=== PATIENT | male | born 1995 | race Caucasian/White ===

== ENCOUNTER 2018-02-13 11:01 | Emergency (ER) | payer OTHER, MEDICAID ==
[2018-02-13 11:15] VITALS: BP 97/68
--- NOTE | 2018-02-13 11:44 | ED Physician Documentation ---
PD HPI HEENT - Stated complaint Stated Complaint: EAR PX - Chief complaint Chief Complaint: Heent - History obtained from History obtained from: Patient, Caregiver - History of Present Illness Timing - onset: How many days ago (few) Timing - details: Still present Location: Right ear Associated symptoms: No: Fever Similar symptoms before: Diagnosis (History of ear infections.) Recently seen: Clinic (He was recently seen at [facility] where he underwent earwax removal after administration of Debrox.) - Additional information Additional information: The patient is a 22-year-old severely autistic male with history of ear infections, who presents with right earache, and fluid coming from his right ear canal. He has a history of ear infections, but his critical care clinical nurse specialist does not know the last time he was treated for an ear infection. He was recently seen at [facility] and underwent earwax removal with Debrox. He's had no recent fever, or vomiting. He has been administered ibuprofen for discomfort. Review of Systems Constitutional: denies: Fever Eyes: denies: Discharge Ears: reports: Ear pain (right), Drainage/discharge (right) Nose: denies: Congestion Respiratory: denies: Cough GI: denies: Vomiting Skin: denies: Rash PD PAST MEDICAL HISTORY - Past Medical History Past Medical History: Yes Neuro: Seizure disorder Other Past Medical History: dravetis syndrome epilepsy, autism, disruptive behavior disorder, cognitive issues due to seizure disorder, mitochondrial disorder, frequent sinus infections, ataxia - Past Surgical History Past Surgical History: Yes HEENT: Myringotomy (tubes) - Present Medications Home Medications: Ambulatory Orders Medication Instructions Recorded Confirmed Ascorbic Acid [Vitamin C] 1 tab PO DAILY 02/13/18 02/13/18 Clobazam [Onfi] 70 mg PO DAILY 02/13/18 02/13/18 Divalproex Sodium [Depakote] 2 tab PO DAILY 02/13/18 02/13/18 Ferrous Gluconate 1 tab PO DAILY 02/13/18 02/13/18 Folic Acid 1 tab PO DAILY 02/13/18 02/13/18 L.acidoph,Saliva/B.bif/S.therm 1 tab PO DAILY 02/13/18 02/13/18 [Acidophilus 175 mg Capsule] Lactulose 4.5 ml PO DAILY 02/13/18 02/13/18 Levocarnitine [Carnitor] 1 tab PO DAILY 02/13/18 02/13/18 Loratadine 1 tab PO DAILY 02/13/18 02/13/18 Neomycin/Polymyx/Hc Otic Drops 4 drops RIGHTEAR TID #1 bottle 02/13/18 [Cortisporin Ear Susp] [place]-3/Dha/Epa/Fish Oil [Fish Oil 1 tab PO DAILY 02/13/18 02/13/18 1,000 mg Softgel] Quetiapine Fumarate 2 tab PO DAILY 02/13/18 02/13/18 Ubidecarenone [Co Q-10] 1 tab PO DAILY 02/13/18 02/13/18 Vitamin B Complex [Balanced B-50] 1 tab PO DAILY 02/13/18 02/13/18 cephALEXin [Cephalexin] 500 mg PO TID #20 tablet 02/13/18 - Social History Does the pt smoke?: No Smoking Status: Smoker current status unk Does the pt drink ETOH?: No Does the pt have substance abuse?: No - Immunizations Immunizations are current?: Yes - POLST Patient has POLST: No PD ED PE NORMAL - Vitals Vital signs reviewed: Yes (normal) - General General: Other (Alert, nonverbal, mentally impaired male, who resists examination. His caregiver helps restrain him to facilitate examination.) - HEENT HEENT: Atraumatic, EOMI, Pharynx benign, Other (Right ear canal is narrow and mildly inflamed. The right tympanic membrane is partially visualized and is erythematous. Left tympanic membrane is clear.) - Neck Neck: Supple, no meningeal sign, No adenopathy - Cardiac Cardiac: RRR - Respiratory Respiratory: No respiratory distress, Clear bilaterally - Derm Derm: No rash - Neuro Neuro: Other (Nonverbal, moving all extremities well.) Results - Vitals Vitals: Oxygen O2 Source Room air PD MEDICAL DECISION MAKING - ED course Complexity details: considered differential, d/w patient, other (d/w caregiver) ED course: The patient's presentation is most consistent with acute right otitis media and right otitis externa. His presentation does not suggest meningitis or peritonsillar abscess. He is being discharged with prescriptions for cephalexin and for Cortisporin Otic suspension. I discussed with his caregiver the expected course of illness, antibiotic treatment and outpatient follow-up, as well as potentially worrisome signs or symptoms that should prompt reevaluation urgency department. - Sepsis Event Vital Signs: Oxygen O2 Source Room air Departure - Departure Disposition: 01 Home, Self Care Clinical Impression: Right otitis media Qualifiers: Otitis media type: suppurative Chronicity: acute Recurrence: not specified as recurrent Spontaneous tympanic membrane rupture: without spontaneous rupture Qualified Code(s): H66.001 - Acute suppurative otitis media without spontaneous rupture of ear drum, right ear Right otitis externa Qualifiers: Otitis externa type: diffuse Chronicity: acute Qualified Code(s): H60.311 - Diffuse otitis externa, right ear Condition: Stable Instructions: ED Otitis Media Acute Adult, ED Otitis Externa Follow-Up: Emmanuelle Zavaleta DO [Primary Care Provider] - Prescriptions: cephALEXin [Cephalexin] 500 mg PO TID #20 tablet Neomycin/Polymyx/Hc Otic Drops [Cortisporin Ear Susp] 4 drops RIGHTEAR TID #1 bottle Comments: Take cephalexin 3 times daily as prescribed. Instill Cortisporin Otic suspension in the right ear canal 3 times daily as prescribed. You can use Tylenol or ibuprofen as needed for discomfort or fever. Follow up with your primary physician within 2 weeks. Call to schedule an appointment. Return to the emergency department if increasing pain, or otherwise worsening symptoms. Discharge Date/Time: 02/13/18 11:50
== END 2018-02-13 11:50 | disposition home or self-care (01) ==
LOC: ED 11:01
DX: H66.001 Acute suppurative otitis media without spontaneous rupture of ear drum, right ear (principal); H60.311 Diffuse otitis externa, right ear; G40.409 Other generalized epilepsy and epileptic syndromes, not intractable, without status epilepticus; F84.0 Autistic disorder; F91.9 Conduct disorder, unspecified; E88.40 Mitochondrial metabolism disorder, unspecified
CPT/HCPCS: 99283

== ENCOUNTER 2018-02-24 17:47 | Outpatient (CLI) | payer OTHER, MEDICAID | END 2018-02-24 17:48 | disposition critical access hospital (66) | LOC: EMS 17:47 | PROVIDERS: ATTEND Surgery | DX: R56.9 Unspecified convulsions (principal) | CPT/HCPCS: A0425; A0429 ==

== ENCOUNTER 2018-02-24 18:03 | Emergency (ER) | payer OTHER, MEDICAID ==
[2018-02-24 18:09] VITALS: BP 128/85
[2018-02-24] MEDS: LORazepam 0.5 MG TABLET PO STA (18:31)
--- NOTE | 2018-02-24 18:56 | ED Physician Documentation ---
PD HPI SEIZURE - Stated complaint Stated Complaint: SZ - Chief complaint Chief Complaint: Neuro - History obtained from History obtained from: Patient, Caregiver - History of Present Illness Timing - onset: Today Witnessed: Witnessed Number of seizures: Multiple, Lasted - seconds Description of seizure activity: Focal (he has history of seizures often and usually brief for few seconds. Has caregivers and protocol to have eval if prolonged or often. Caregiver here says there was a new caregiver with the patient who was unfamiliar with the number of seizures patient has so here for eval but patient is not really having more than usual. He is limping on right foot the past 2 days, without apparent injury. No URI symptoms, no V/D.) Injury during seizure: None. No: Fell, Head injury Associated symptoms: No: Headache, Nausea / vomiting History of seizures: Known seizure disorder Contributing factors: Other (caregiver says the patient was busy today and seizures will be more often when he is tired and hungry.). No: Off meds, Out of meds Similar symptoms before: Diagnosis (seizure disorder, developmental delay, autism.) Review of Systems Unable to obtain: Other (developmental delay and minimally verbal. info from caregiver.) Constitutional: denies: Fever Nose: denies: Congestion Cardiac: denies: Chest pain / pressure Respiratory: denies: Dyspnea, Cough GI: denies: Vomiting, Diarrhea Skin: denies: Laceration (s) Musculoskeletal: reports: Extremity pain (limping right foot the past 2 days.) Neurologic: denies: Focal weakness, Numbness PD PAST MEDICAL HISTORY - Past Medical History Past Medical History: Yes Neuro: Seizure disorder, Other (cognitive delay and autism) Other Past Medical History: Severe autism that causes difficulty with even basic communication and a tendency for recurrent ear infections, sinus infections and can have self harming behaviours. aggresion, severe impulsivity and self-harming are triggered by illness or injury - Past Surgical History Past Surgical History: Yes HEENT: Myringotomy (tubes) - Present Medications Home Medications: Ambulatory Orders Medication Instructions Recorded Confirmed Ascorbic Acid [Vitamin C] 1 tab PO DAILY 02/13/18 02/13/18 Clobazam [Onfi] 70 mg PO DAILY 02/13/18 02/13/18 Divalproex Sodium [Depakote] 2 tab PO DAILY 02/13/18 02/13/18 Ferrous Gluconate 1 tab PO DAILY 02/13/18 02/13/18 Folic Acid 1 tab PO DAILY 02/13/18 02/13/18 L.acidoph,Saliva/B.bif/S.therm 1 tab PO DAILY 02/13/18 02/13/18 [Acidophilus 175 mg Capsule] Lactulose 4.5 ml PO DAILY 02/13/18 02/13/18 Levocarnitine [Carnitor] 1 tab PO DAILY 02/13/18 02/13/18 Loratadine 1 tab PO DAILY 02/13/18 02/13/18 Neomycin/Polymyx/Hc Otic Drops 4 drops RIGHTEAR TID #1 bottle 02/13/18 [Cortisporin Ear Susp] [place]-3/Dha/Epa/Fish Oil [Fish Oil 1 tab PO DAILY 02/13/18 02/13/18 1,000 mg Softgel] Quetiapine Fumarate 2 tab PO DAILY 02/13/18 02/13/18 Ubidecarenone [Co Q-10] 1 tab PO DAILY 02/13/18 02/13/18 Vitamin B Complex [Balanced B-50] 1 tab PO DAILY 02/13/18 02/13/18 Diacomit Stiripentol 1,000 mg ORAL DAILY 02/24/18 Montelukast [Singulair] 10 mg PO QPM 02/24/18 02/24/18 Naproxen 375 mg PO BID #20 tablet 02/24/18 Potassium [place] 300 mg ORAL DAILY 02/24/18 Ubidecarenone [Co Q-10] 100 mg PO 02/24/18 - Allergies Allergies/Adverse Reactions: Allergies Allergy/AdvReac Type Severity Reaction Status Date / Time acetaminophen Allergy Unknown Verified 02/24/18 18:12 prednisone Allergy Hives Verified 02/24/18 18:12 sulfamethoxazole Allergy Unknown Verified 02/24/18 18:12 [From ] trimethoprim [From ] Allergy Unknown Verified 02/24/18 18:12 - Living Situation Living Situation: reports: With caregiver(s) Living Arrangement: reports: [facility] - Social History Does the pt smoke?: No Smoking Status: Never smoker Does the pt drink ETOH?: No Does the pt have substance abuse?: No - Immunizations Immunizations are current?: Yes - POLST Patient has POLST: No PD ED PE NORMAL - Vitals Vital signs reviewed: Yes - General General: Well developed/nourished, Other (attentive and interacts with caregiver at low level of function, but interacts. ) - HEENT HEENT: Atraumatic, Pharynx benign - Cardiac Cardiac: RRR, No murmur - Respiratory Respiratory: Clear bilaterally - Abdomen Abdomen: Soft, Non tender - Derm Derm: Normal color, Warm and dry - Extremities Extremities: Other (limping right foot/ankle. Does not seem to have limited ROM of knee/hip, and kneels/scoots on floor okay without pain. ) Results - Vitals Vitals: Vital Signs - 24 hr 02/24/18 18:05 Temperature 36.2 C L Heart Rate 64 Respiratory 18 Rate Blood Pressure 128/85 H O2 Saturation 99 Oxygen O2 Source Room air - Rads (name of study) right foot and ankle Radiology: Prelim report reviewed, EMP read contemporaneously (no fractures) PD MEDICAL DECISION MAKING - Sepsis Event Vital Signs: Vital Signs - 24 hr 02/24/18 18:05 Temperature 36.2 C L Heart Rate 64 Respiratory 18 Rate Blood Pressure 128/85 H O2 Saturation 99 Oxygen O2 Source Room air Departure - Departure Disposition: 01 Home, Self Care Clinical Impression: Recurrent seizures Right foot sprain Qualifiers: Encounter type: initial encounter Qualified Code(s): S93.601A - Unspecified sprain of right foot, initial encounter Condition: Stable Record reviewed to determine appropriate education?: Yes Instructions: ED Sprain Foot Prescriptions: Naproxen 375 mg PO BID #20 tablet Comments: Continue his current medications. Encourage good hydration. Rest tonight. His foot x-ray does not show any obvious fractures. Presume it sprained. You could use some naproxen or ibuprofen twice daily for the next 7-10 days. It is okay for him to be on it and using it. Recheck is still limping after week or so. Discharge Date/Time: 02/24/18 19:00
--- NOTE | 2018-02-24 19:12 | XRAY Report ---
Procedure Date: 02/24/2018 Accession Number: [id number] / [id number] Procedure: XR - Ankle 3 View RT CPT Code: FULL RESULT: EXAM: RIGHT ANKLE RADIOGRAPHY EXAM DATE: 02/24/2018 06:51 PM. CLINICAL HISTORY: Limping right foot/leg. COMPARISON: None. TECHNIQUE: 3 views. FINDINGS: Bones: No fracture or focal bony lesion. Joints: No evidence of dislocation. Soft Tissues: No unexpected soft tissue findings. IMPRESSION: No evidence of fracture or dislocation. RADIA
--- NOTE | 2018-02-24 19:13 | XRAY Report ---
Procedure Date: 02/24/2018 Accession Number: [id number] / [id number] Procedure: XR - Foot 3 View RT CPT Code: FULL RESULT: EXAM: RIGHT FOOT RADIOGRAPHY EXAM DATE: 02/24/2018 06:51 PM. CLINICAL HISTORY: Limping on right foot/leg. COMPARISON: None. TECHNIQUE: 3 views. FINDINGS: Bones: No fracture or focal bony lesion. Joints: No evidence of dislocation. There is approximately 30 degrees valgus angulation through the first metatarsophalangeal joint. Soft Tissues: No unexpected soft tissue findings. IMPRESSION: No evidence of fracture or dislocation. RADIA
== END 2018-02-24 19:00 | disposition home or self-care (01) ==
LOC: EDUNIT# → ED 18:03
DX: G40.909 Epilepsy, unspecified, not intractable, without status epilepticus (principal); S93.601A Unspecified sprain of right foot, initial encounter; X58.XXXA Exposure to other specified factors, initial encounter; F84.0 Autistic disorder
CPT/HCPCS: 73610; 73630; 99283; 99284; A9270

== ENCOUNTER 2018-04-26 08:21 | Emergency (ER) | payer OTHER, MEDICAID ==
--- NOTE | 2018-04-26 08:34 | ED Physician Documentation ---
PD HPI UPPER EXT INJURY - Stated complaint Stated Complaint: L INDEX FINGER INJ - History of Present Illness Location: Left, Finger (index) Type of injury: Blunt / blow (caregiver believes he hit it against something.) Timing - onset: Yesterday Timing - duration: Days (1) Timing - details: Still present in ED (unknown mecahnism. Patient with autism and hits at objects sporadically. Went home from snf yesterday and returned with swelling of finger. Hurting and swelling still today. No other apparent injuries.) Improved by: Rest Worsened by: Moving, Palpating Associated symptoms: Swelling. No: Weakness, Numbness Similar symptoms before: Has not had sx before Recently seen: Not recently seen Review of Systems Skin: denies: Abrasion (s), Laceration (s) Neurologic: denies: Focal weakness, Numbness PD PAST MEDICAL HISTORY - Past Medical History Neuro: Seizure disorder, Other (cognitive delay and autism) - Past Surgical History Past Surgical History: Yes HEENT: Myringotomy (tubes) - Present Medications Home Medications: Ambulatory Orders Medication Instructions Recorded Confirmed Ascorbic Acid [Vitamin C] 1 tab PO DAILY 02/13/18 02/13/18 Clobazam [Onfi] 70 mg PO DAILY 02/13/18 02/13/18 Divalproex Sodium [Depakote] 2 tab PO DAILY 02/13/18 02/13/18 Ferrous Gluconate 1 tab PO DAILY 02/13/18 02/13/18 Folic Acid 1 tab PO DAILY 02/13/18 02/13/18 L.acidoph,Saliva/B.bif/S.therm 1 tab PO DAILY 02/13/18 02/13/18 [Acidophilus 175 mg Capsule] Lactulose 4.5 ml PO DAILY 02/13/18 02/13/18 Levocarnitine [Carnitor] 1 tab PO DAILY 02/13/18 02/13/18 Loratadine 1 tab PO DAILY 02/13/18 02/13/18 Neomycin/Polymyx/Hc Otic Drops 4 drops RIGHTEAR TID #1 bottle 02/13/18 [Cortisporin Ear Susp] [place]-3/Dha/Epa/Fish Oil [Fish Oil 1 tab PO DAILY 02/13/18 02/13/18 1,000 mg Softgel] Quetiapine Fumarate 2 tab PO DAILY 02/13/18 02/13/18 Ubidecarenone [Co Q-10] 1 tab PO DAILY 02/13/18 02/13/18 Vitamin B Complex [Balanced B-50] 1 tab PO DAILY 02/13/18 02/13/18 Diacomit Stiripentol 1,000 mg ORAL DAILY 02/24/18 Montelukast [Singulair] 10 mg PO QPM 02/24/18 02/24/18 Naproxen 375 mg PO BID #20 tablet 02/24/18 Potassium [place] 300 mg ORAL DAILY 02/24/18 Ubidecarenone [Co Q-10] 100 mg PO 02/24/18 - Allergies Allergies/Adverse Reactions: Allergies Allergy/AdvReac Type Severity Reaction Status Date / Time acetaminophen Allergy Unknown Verified 02/24/18 18:12 prednisone Allergy Hives Verified 02/24/18 18:12 sulfamethoxazole Allergy Unknown Verified 02/24/18 18:12 [From ] trimethoprim [From ] Allergy Unknown Verified 02/24/18 18:12 - Social History Does the pt smoke?: No Smoking Status: Never smoker Does the pt drink ETOH?: No Does the pt have substance abuse?: No - Immunizations Immunizations are current?: Yes - POLST Patient has POLST: No PD ED PE NORMAL - Vitals Vital signs reviewed: Yes - General General: No acute distress, Well developed/nourished, Other (nonverbal but does follow some sign language cues from provider. ) - HEENT HEENT: Atraumatic - Derm Derm: Normal color, Warm and dry - Extremities Extremities: Other (left index finger with swelling and bruising, tender at PIP. No gross deformity. Guarded ROM there but can extend and flex. Normal color and cap refill at tip. ) - Neuro Neuro: No motor deficit, No sensory deficit Results - Vitals Vitals: Vital Signs - 24 hr 04/26/18 08:37 Temperature 36.0 C L Heart Rate 91 Respiratory 18 Rate Blood Pressure 105/62 O2 Saturation 97 Oxygen O2 Source Room air - Rads (name of study) finger Radiology: Prelim report reviewed, EMP read contemporaneously (fracture distal end of proximal phalanx. ) PD MEDICAL DECISION MAKING - ED course Complexity details: reviewed results (phalanx fracture), considered differential , d/w patient, other (d/s caregiver accompanying him) - Sepsis Event Vital Signs: Vital Signs - 24 hr 04/26/18 08:37 Temperature 36.0 C L Heart Rate 91 Respiratory 18 Rate Blood Pressure 105/62 O2 Saturation 97 Oxygen O2 Source Room air Departure - Departure Disposition: 01 Home, Self Care Clinical Impression: Fracture of phalanx of left index finger Qualifiers: Encounter type: initial encounter Fracture type: closed Phalanx: proximal Fracture alignment: nondisplaced Qualified Code(s): S62.641A - Nondisplaced fracture of proximal phalanx of left index finger, initial encounter for closed fracture Condition: Stable Record reviewed to determine appropriate education?: Yes Instructions: ED Fx Finger Closed Follow-Up: Mathew Guillaume MD [Provider Admit Priv/Credential] - Comments: Olivia tape and splint or olivia tape as tolerated to protect the joint at the fracture. If it is too annoying for him and he is fussing at at a lot, then no splint would be better than him playing with it a lot. Follow-up with orthopedics in about a week, call tomorrow for an appointment. They will want to re-x-ray it to ensure its staying in position well enough to heal. Tylenol or ibuprofen if needed for pains. Discharge Date/Time: 04/26/18 09:34
[2018-04-26 08:40] VITALS: BP 105/62
--- NOTE | 2018-04-26 09:18 | XRAY Report ---
Reason: index finger injury Procedure Date: 04/26/2018 Accession Number: [id number] / [id number] Procedure: XR - Finger(s) LT CPT Code: FULL RESULT: EXAM: LEFT SECOND DIGIT RADIOGRAPHY EXAM DATE: 04/26/2018 08:53 AM. CLINICAL HISTORY: Patient is nonverbal. Caregiver reports the patient [place] the beach yesterday and there is now bruising and swelling left index finger. COMPARISON: None. TECHNIQUE: 3 views. FINDINGS: Bones: Oblique fracture through the distal medial aspect of the second proximal phalanx with 2 mm proximal and medial offset. The fracture line involves the articular surface of the PIP joint. Joints: No dislocation. Soft Tissues: Diffuse soft tissue swelling. IMPRESSION: Acute, mildly displaced, intra-articular fracture of the second proximal phalanx. RADIA
== END 2018-04-26 09:34 | disposition home or self-care (01) ==
LOC: ED 08:21
DX: S62.641A Nondisplaced fracture of proximal phalanx of left index finger, initial encounter for closed fracture (principal); X58.XXXA Exposure to other specified factors, initial encounter; Y92.832 Beach as the place of occurrence of the external cause; F84.0 Autistic disorder
CPT/HCPCS: 73140; 99283

== ENCOUNTER 2018-07-29 14:03 | Outpatient (CLI) | payer OTHER, MEDICAID | END 2018-07-29 14:04 | disposition critical access hospital (66) | LOC: EMS 14:03 | PROVIDERS: ATTEND Surgery | DX: R45.6 Violent behavior (principal) | CPT/HCPCS: A0425; A0429 ==

== ENCOUNTER 2018-07-29 14:19 | Emergency (ER) | payer OTHER, MEDICAID ==
[2018-07-29] MEDS ORDERED: OLANZapine 10 MG VIAL IM STA ×2 (14:28→18:38)
--- NOTE | 2018-07-29 14:40 | ED Physician Documentation ---
History of Present Illness - Stated complaint Stated Complaint: MHE - Chief complaint Chief Complaint: MHE - History obtained from History obtained from: EMS - History of Present Illness Timing: Today Pain level max: 0 Pain level now: 0 Improved by: nothing Worsened by: nothing - Additonal information Additional information: Patient is a 23-year-old autistic male who is brought in by EMS today for being violent at school. This is been an ongoing issue for the patient. Last saw his behavioral psychiatrist approximately 2-1/2 weeks ago and was started on a new medication, Fanapt. Is currently on 1mg PO BID. The care facility has not recontacted his doctor or his psychiatrist or anyone on his care team since he was seen 2-1/2 weeks ago. They do state that the behavior has been the same and has been unchanged. They state that his mother states he has been violent for a long time. Review of Systems Unable to obtain: Uncooperative PD PAST MEDICAL HISTORY - Past Medical History Past Medical History: Yes Neuro: Seizure disorder, Other Psych: ADD/ADHD - Past Surgical History Past Surgical History: Yes HEENT: Myringotomy (tubes) - Present Medications Home Medications: Ambulatory Orders Medication Instructions Recorded Confirmed Ascorbic Acid [Vitamin C] 1 tab PO DAILY 02/13/18 02/13/18 Clobazam [Onfi] 70 mg PO DAILY 02/13/18 02/13/18 Divalproex Sodium [Depakote] 2 tab PO DAILY 02/13/18 02/13/18 Ferrous Gluconate 1 tab PO DAILY 02/13/18 02/13/18 Folic Acid 1 tab PO DAILY 02/13/18 02/13/18 L.acidoph,Saliva/B.bif/S.therm 1 tab PO DAILY 02/13/18 02/13/18 [Acidophilus 175 mg Capsule] Lactulose 4.5 ml PO DAILY 02/13/18 02/13/18 Levocarnitine [Carnitor] 1 tab PO DAILY 02/13/18 02/13/18 Loratadine 1 tab PO DAILY 02/13/18 02/13/18 Neomycin/Polymyx/Hc Otic Drops 4 drops RIGHTEAR TID #1 bottle 02/13/18 [Cortisporin Ear Susp] [place]-3/Dha/Epa/Fish Oil [Fish Oil 1 tab PO DAILY 02/13/18 02/13/18 1,000 mg Softgel] Quetiapine Fumarate 2 tab PO DAILY 02/13/18 02/13/18 Ubidecarenone [Co Q-10] 1 tab PO DAILY 02/13/18 02/13/18 Vitamin B Complex [Balanced B-50] 1 tab PO DAILY 02/13/18 02/13/18 Diacomit Stiripentol 1,000 mg ORAL DAILY 02/24/18 Montelukast [Singulair] 10 mg PO QPM 02/24/18 02/24/18 Naproxen 375 mg PO BID #20 tablet 02/24/18 Potassium [place] 300 mg ORAL DAILY 02/24/18 Ubidecarenone [Co Q-10] 100 mg PO 02/24/18 Iloperidone [Fanapt] 2 mg PO BID #60 tablet 07/29/18 OLANZapine [Zyprexa Zydis] 5 mg PO BID PRN #20 tab.rapdis 07/29/18 - Allergies Allergies/Adverse Reactions: Allergies Allergy/AdvReac Type Severity Reaction Status Date / Time acetaminophen Allergy Unknown Verified 02/24/18 18:12 prednisone Allergy Hives Verified 02/24/18 18:12 sulfamethoxazole Allergy Unknown Verified 02/24/18 18:12 [From ] trimethoprim [From ] Allergy Unknown Verified 02/24/18 18:12 - Social History Does the pt smoke?: No Smoking Status: Never smoker Does the pt drink ETOH?: No Does the pt have substance abuse?: No - Immunizations Immunizations are current?: Yes - POLST Patient has POLST: No PD ED PE NORMAL - Vitals Vital signs reviewed: Yes - General General: Other (alert) - HEENT HEENT: Moist mucous membranes - Neck Neck: Supple, no meningeal sign - Cardiac Cardiac: RRR - Respiratory Respiratory: No respiratory distress, Clear bilaterally - Abdomen Abdomen: Soft, Non tender, Non distended - Derm Derm: Warm and dry, No rash - Extremities Extremities: No deformity, No edema - Neuro Neuro: Other (alert) Results - Vitals Vitals: Vital Signs - 24 hr 07/29/18 07/29/18 14:23 22:04 Temperature 36.8 C Heart Rate 116 H 86 Respiratory 18 18 Rate Blood Pressure 145/130 H 126/84 H O2 Saturation 97 97 Oxygen O2 Source Room air PD MEDICAL DECISION MAKING - ED course Complexity details: considered differential, d/w literacy consultant (Dr. Cavanaugh (behavioral psychiatrist in [place])), other (d/w caregiver) ED course: Patient is a 23-year-old autistic male with a long history of behavioral disturbances. Long history of aggressive behavior. Caregiver state worse over the past several weeks. Has seen his psychiatrist a few weeks ago, but has not been recontacted since that time. I contacted his behavioral psychiatrist who recommends increasing his Fanapt to 2 mg by mouth twice daily and adding Zyprexa Zydis 5 mg by mouth as needed for breakthrough aggression. Patient initially was restrained in the emergency department and was given Zyprexa as well as Ativan. He did calm down in the emergency department, but the caregivers state they are instructed by their boss that he is not to come home. Discussed the case with the caregivers boss, Catie Hale at 2200, who states that she was informed by the state social work faculty member not to take him home and that she needs the patient's mother to come in tomorrow morning at 10 AM to have permission to take him back to his home. I informed her that there is no acute emergency medical condition at this time and that we have adjusted his medications as requested and have written new prescriptions for her for breakthrough medications. He is out of restraints and sleeping for the past few hours. Was watching Peppa Pig on youtube calmly earlier in the ED visit as well. She states that it is not her choice to take him home or not and that she will be leaving him in the emergency department until tomorrow. She states she will come to the emergency department in the morning to discuss with staff and meet with patients mother. Patient signed out to oncoming ED physician. Departure - Departure Clinical Impression: Autism, Aggressive behavior Condition: Stable Instructions: Autism Manage Follow-Up: Anthony Ugalde MD [Primary Care Provider] - Within 1 week Prescriptions: Iloperidone [Fanapt] 2 mg PO BID #60 tablet OLANZapine [Zyprexa Zydis] 5 mg PO BID PRN #20 tab.rapdis PRN Reason: Agitation Comments: We will increase the Fanapt to 2mg by mouth twice a daily. Add zyprexa for breakthrough. Leave the seroquel alone for now. I spoke with Dr. Cavanaugh today.
[2018-07-29] MEDS ORDERED: LORazepam 0.5 MG TABLET PO STA (15:48)
[2018-07-29] MEDS ORDERED: OLANZapine ODT 5 MG TABLET TL STA (16:38)
[2018-07-29] MEDS ORDERED: LORazepam 2 MG/ML VIAL IM STA (19:29)
[2018-07-30] MEDS ORDERED: OLANZapine ODT 5 MG TABLET TL ONE (03:42)
--- NOTE | 2018-07-30 06:32 | ED Physician Documentation ---
ED Addendum - Addendum Addendum: 07/30/18 06:26 23 y/o autistic male with increased aggressive behavior slept until about 3am when he became agitated and became more aggressive. He began to swing at the RN and tried to lay on the floor. He needed to go to the bathroom and was assisted the bathroom and again attempted to swing at the RN. He tried to tear things off of the wall in the bathroom and he grabbed trying to dig his sharp nails into tissue. He was administered zyprexa 5mg TL and he required restraint. The tele- psych has been set up in anticipation of a consultation for potential medication changes.
[2018-07-30 08:51] LABS: BASOPHILS % (AUTO) 0.2 %; EOSINOPHILS % (AUTO) 0.2 %; LYMPHOCYTES # (AUTO) 0.7 10^3/uL (1.5-3.5); LYMPHOCYTES % (AUTO) 11.6 %; MEAN CORPUSCULAR HEMOGLOBIN 33.3 pg (27.0-31.0); MEAN CORPUSCULAR HGB CONC 33.2 g/dL (32.0-36.0); MEAN CORPUSCULAR VOLUME 100.3 fL (80.0-94.0); MEAN PLATELET VOLUME 9.1 fL (7.4-11.4); MONOCYTES # (AUTO) 0.7 10^3/uL (0.0-1.0); MONOCYTES % (AUTO) 12.5 %; NEUTROPHILS # (AUTO) 4.4 10^3/uL (1.5-6.6); NEUTROPHILS % (AUTO) 75.5 %; PLT - PLATELET COUNT 207 10^3/uL (130-450); RED BLOOD COUNT 3.59 10^6/uL (4.70-6.10); RED CELL DISTRIBUTION WIDTH 13.4 % (12.0-15.0); WHITE BLOOD COUNT 5.8 x10^3/uL (4.8-10.8)
[2018-07-30 09:01] LABS: ALBUMIN 4.3 g/dL (3.2-5.5); ALBUMIN/GLOBULIN RATIO 1.2 (1.0-2.2); BILIRUBIN,TOTAL 0.5 mg/dL (0.2-1.0); CALCIUM 9.4 mg/dL (8.5-10.3); CREATININE 0.7 mg/dL (0.6-1.2); TOTAL PROTEIN 7.9 g/dL (6.7-8.2)
--- NOTE | 2018-07-30 12:13 | TELEPSYCH PHYS NOTE ---
Telepsych Note - CHIEF COMPLAINT/HX OF PRESENT ILLNESS Cheif Complaint and History of Present Illness: Patient name & : Michael Hill 89 Date & time of consultation: 07/30/18, 130pm Location of patient: [facility] Location of doctor: [place], [place] Chief Complaint: Telepsychiatry consultation This evaluation was conducted via Telepsychiatry with the assistance of onsite staff. History of Present Illness: This pt is a 23 yr old male with hx of autism and seizure disorder . Chart reviewed and case discussed with treatment team. He presented to the hospital on 07/29 due to aggresive behavior at school. Per chart he has a long hx of aggressive behavior but this behavior has been worsening recently. He had a recent medication change - he was started on Fanapt. Pt's home psych meds were reviewed by the ED staff and are as follows (some are likely prescribed for seizures as well): Depakote 125mg TID, Seroquel 100mg TID, Ativan 0.5mg qpm prn, Clobazam 30mg daily with breakfast and 35mg qpm, Fanapt 1mg BID (started 1.5 weeks ago). The ED physician yesterday spoke to the pt's private psychiatrist who recommended the following : increasing his Fanapt to 2 mg by mouth twice daily and adding Zyprexa prns for breakthrough aggression. Per ED treatment team, here in the ED pt was continued on his home meds, and is receiving prns of zyprexa and ativan for aggression. Here in the ED he has received multiple prns of ativan and zyprexa both today and yesterday. He also had to be restrained at some point. Apparently overnight he became agitated and attempted to swing at a nurse and tried to tear things off the wall. Per the ED staff, the pt resides at a senior living and they will not accept him back. So he is here pending disposition in the ED. Telepsychiatry was consulted for assessment and recommendations for management. Pt is unable to participate with interview; fortunately his mother and caregiver were present and assisted with interview. Mother says that the pt has a psych history of autism, disruptive behavior disorder, anxiety and ADHD. He also has hx of seizures. He currently does have an outpt psychiatrist. He has hx of aggressive behavior in the past but there has been worsening in the past 3 weeks specifically after he broke his finger and needed surgery. Since then he has been more aggressive and has not been sleeping well. He has also had some other medical issues ie his clobazam levels being decreased; ammonia levels have recently been abnormal possibly per mother. In addition his internet programmer says that in June he was having seizures every week and continues to have seizures. In April they started tapering his clobazam dose very slowly bc the level was too high, as per the mother. Apparently the pt lives at home (not a senior living as previously reported) with mother but multiple caregivers come to the home to assist. The current caregiver confirms that prior to the recent surgery he had hx of aggressive behaviors ie headbunting people but that these behaviors worsened recently. She thinks that herself and one of the other caregivers may be able to manage the pt but there are other caregivers who cannot. In regards to his meds, they were reviewed with pt's mother: -She says that the pt takes seroquel 100mg BID and 300mg qhs - per chart it says 100mg TID. She says that he has been on this medication since 2008 with no recent dose changes. -Depakote for seizures; he has been on this since the age of 5 years. -Fanapt was started 1.5 weeks ago; mother has not noticed much improvement since then. -Pt takes ativan prn at bedtime; she does not think it helps and thinks that it may be causing a paradoxical reaction. -Per mother he is also on guanfacine at bedtime , though this is not listed in the chart; she think this helps calm the pt down at nighttime Collateral: see HPI. With the permission of the pt's mother I attempted to contact pt's psychiatrist Dr. Gabriela Cavanaugh at [phone]. I left a message with office staff but never received a call back. Psychiatric History/Treatment History: -Inpatient:in 2008 after he had an allergic reaction to a steroid (mother says that this reaction included sx of batsheva) -Outpatient:yes -History of suicide attempts:unknown Drug/Alcohol History:No UDS on file Medical History: -Medical problems:per chart and mother-seizure disorder -Current medications:see chart - ED treatment team confirmed that his home psych meds include: Depakote 125mg TID, Seroquel 100mg BID and 300mg qhs (per mother, chart says 100mg TID), Ativan 0.5mg qpm prn, Clobazam 30mg daily with breakfast and 35mg qpm, Fanapt 1mg BID (started 1.5 weeks ago). -Medication Allergies:acetaminophen, trimethoprim, prednisone, sulfa Family Psychiatric History: unknown Social History: -Education: pt in school per chart -Housing: pt lives at home and has caregivers that come to the home, as per mother -Strength/supports: medical Mental Status Exam: Appearance and attire: hospital attire, lying in bed in restraints Attitude and behavior:labile, restless Speech: unable to participate with interview Affect and mood: unable to assess Association and thought processes: unable to assess Thought content: unable to assess Perception: unable to assess Sensorium, memory, and orientation: alert Intellectual functioning: unable to assess Insight and judgment:impaired Diagnosis: Autism spectrum disorder by hx Seizure disorder Impression/Risk Assessment/Treatment Recommendations: -Recommended level of care: The patient is a 23 yr old male who presented to the ED yesterday, 07/29, due to worsening aggressive behaviors. Here in the ED pt continues to be agitated and aggressive, requiring many prns and restraints as well. Given the recent behaviors I would recommend an acute psychiatric hospitalization to help stabilize his behaviors and figure out a good medication regimen. However this is a difficult situation. His mother is somewhat hesitant about a hospital stay bc she says that often times his behaviors worsen in the hospital setting. Also of concern is that it is unknown if there is a psychiatric hosptial in the area that will accept him. It would be problematic to have him wait here for days just pending placement bc per ED staff, they are not equipped to manage his behaviors. Thus I recommend that if an acute psychiatric hospital setting can be found and the pt can promptly be admitted there and pt's mother agrees to that, then that should be pursued. However if that would not be possible and if mother does not agree to that , then as long as the pt's mother and caregivers feel comfortable with him being discharged home from a safety perspective, then he can be discharged with close follow up with his psychiatrist. -Recommended pharmacology/therapy/other treatments: If he is not going to be admitted to inpt psych and will be discharged, then medication recommendations are not indicated; in that case, his medications should be managed by his outpt provider in the outpt setting. If , and only if, he is going to be admitted to inpt psych, then recommend the following. -Discontinue ativan prns and unless prescribed for seizures, avoid benzos- sometimes benzos can cause behavioral disinhibition in this patient population. Also, ativan should not be given with zyprexa due to the risk of respiratory depression. -Increase seroquel to 125mg BID and 325mg qhs to help better target aggressive behaviors. -Continue his other psych meds ie the fanapt and zyprexa prns - max dose of zyprexa per day should not exceed 30mg total daily. -Monitor for EPS. If there are sx of EPS may start Benadryl 50mg PO or IM q6hrs prn EPS. Further recommendations regarding his psych meds will be made by the inpt psych treatment team upon admission there. These recommendations were discussed with the pt's mother and she expressed full agreement and understanding of this plan. Recommendations were also discussed with the ED physician as well. Thank you for this consult, please re-consult for follow up if indicated. Erum Cardenas MD Telepsychiatry - SI/HI/SELF HARM SI/HI/SELF HARM (CURRENT OR HISTORY OF):: Other - PSYCHIATRIC HX/TREATMENT HX Psychiatric: Other - DRUG/ALCOHOL HX Substance Use and Type: Other - MEDICAL HX Neurological History: Seizure disorder, Other - HOME MEDICATIONS Home Meds (as last confirmed): Patient History Medication Instructions Recorded Confirmed Ferrous Gluconate 1 tab PO DAILY 02/13/18 07/30/18 Folic Acid 1 tab PO DAILY 02/13/18 07/30/18 Lactulose 6 ml PO TID 02/13/18 07/30/18 Levocarnitine [Carnitor] 1 tab PO QPM 02/13/18 07/30/18 [place]-3/Dha/Epa/Fish Oil [Fish Oil 1 tab PO QPM 02/13/18 07/30/18 1,000 mg Softgel] Vitamin B Complex [Balanced B-50] 1 tab PO DAILY 02/13/18 07/30/18 Diacomit Stiripentol 1,000 mg ORAL DAILY 02/24/18 07/30/18 Montelukast [Singulair] 10 mg PO DAILY 02/24/18 07/30/18 Potassium [place] 300 mg ORAL TID 02/24/18 07/30/18 Ubidecarenone [Co Q-10] 100 mg PO BID 02/24/18 07/30/18 Ascorbic Acid [Vitamin C] 500 mg PO BID 07/30/18 07/30/18 Cholecalciferol (Vitamin D3) 1,000 unit PO QPM 07/30/18 07/30/18 [Vitamin D3] Clobazam [Onfi] 30 mg PO [id number] 07/30/18 07/30/18 Clobazam [Onfi] 35 mg PO QPM 07/30/18 07/30/[address] [Depakote Dr] 125 mg PO TID 07/30/18 07/30/18 Fexofenadine HCl 180 mg PO DAILY 07/30/18 07/30/18 Guanfacine HCl 1 mg PO QPM 07/30/18 07/30/18 Ibuprofen 400 mg PO Q6HR PRN 07/30/18 07/30/18 L.acidoph,Saliva/B.bif/S.therm 178 mg PO DAILY 07/30/18 07/30/18 [Acidophilus 175 mg Capsule] LORazepam [Lorazepam] 0.5 mg PO QPM PRN 07/30/18 07/30/18 [id number]/Ferrous Fumarate/FA [Kro 1 each PO DAILY 07/30/18 07/30/18 Vitamins Tablet] Polyethylene Glycol 3350 [Miralax] 17 gm PO BID PRN 07/30/18 07/30/18 Quetiapine Fumarate 100 mg PO BID 07/30/18 07/30/18 Quetiapine Fumarate [Seroquel] 300 mg PO DAILY PM 07/30/18 07/30/18 Quetiapine Fumarate [Seroquel] 500 mg PO ONCE PRN 07/30/18 07/30/18 Vitamin E Acetate [Vitamin E] 400 unit PO QPM 07/30/18 07/30/18 diazePAM [Diazepam] 0 mg IN ONCE PRN 07/30/18 07/30/18 - ALLERGIES Allergies (as last confirmed): Allergies Allergy/AdvReac Type Severity Reaction Status Date / Time acetaminophen Allergy Unknown Verified 02/24/18 18:12 prednisone Allergy Hives Verified 02/24/18 18:12 sulfamethoxazole Allergy Unknown Verified 02/24/18 18:12 [From ] trimethoprim [From ] Allergy Unknown Verified 02/24/18 18:12 - TIME SPENT & PROVIDER LOCATION Telepsych consultation conducted via videoconferencing: Yes List names and roles of persons who participated in consult: Oh Telepsych Provider Location: [facility] Time Telepsych consult began: 14:00 Time Telepsych consult completed: 14:30
[2018-07-30 16:25] LABS: MUDS CUTOFF CONCENTRATIONS CUTOFF CONC BELOW:
[2018-07-30 16:27] LABS: BILIRUBIN,URINE NEGATIVE (NEGATIVE); GLUCOSE, URINE (UA) NEGATIVE (NEGATIVE); KETONES,URINE (UA) NEGATIVE (NEGATIVE); LEUKOCYTE ESTERASE, URINE NEGATIVE (NEGATIVE); NITRITE,URINE NEGATIVE (NEGATIVE); OCCULT BLOOD,URINE NEGATIVE (NEGATIVE); PH,URINE 7.5 PH (5.0-7.5); PROTEIN,URINE NEGATIVE (NEGATIVE); UROBILINOGEN,URINE 0.2 (NORMAL) E.U./dL (NORMAL)
[2018-07-30 16:38] LABS: CLARITY,URINE CLEAR (CLEAR)
[2018-07-30 16:39] LABS: AMPHETAMINE SCREEN,URINE NEGATIVE (NEGATIVE); BENZODIAZEPINES SCREEN, URINE POSITIVE (NEGATIVE); COCAINE SCREEN URINE NEGATIVE (NEGATIVE); METHADONE SCREEN, URINE NEGATIVE (NEGATIVE); METHAMPHETAMINES SCREEN, URINE NEGATIVE (NEGATIVE); OPIATE SCREEN, URINE NEGATIVE (NEGATIVE); OXYCODONE SCREEN, URINE NEGATIVE (NEGATIVE); PROPOXYPHENE SCREEN, URINE NEGATIVE (NEGATIVE); TRICYCLIC ANTIDEPRESSANT,URINE POSITIVE (NEGATIVE)
--- NOTE | 2018-07-30 18:11 | ED Physician Documentation ---
ED Addendum - Addendum Addendum: 07/30/18 18:07 The patient has been calm and cooperative through the day. He has been released from his restraints earlier and has been doing well interacting with staff. He had had some aggressive behavior this morning but has been doing okay through the afternoon. He had doses of Zyprexa. He was evaluated by social work as well as DCR. He had a tele-psych consult this morning which recommended some medication changes and these would be best done a few days in the hospital if possible though the tele-psych psychiatrist did recommend him going home with medication changes if possible rather than prolonged stay in the ER which would really be disruptive and likely trigger more behavioral problems. The health care social worker and the nurse in the ER kept the patient's mother and caregivers up-to-date. I talked with the tele-psych psychiatrist as well as Dr. vega his behavioral p sychologist at [facility]. Concurrence was to change his medications from Seroquel dosing currently 100 in the morning 100 and afternoon and 300 at night to a new regimen of 300 mg twice a day. We would increase his other recent medication from 1-2 mg as discussed in the note from yesterday and still keep Zyprexa as a as needed medication. The patient's mother and the care providers at his home are agreeable to this. He has been without need for extra medication and been cooperative for the last few hours. Concurrence is if he remains good behavior for another 4 hours that they are willing to take him back home with the modified medication regimen.
[2018-07-30 19:52] VITALS: BP 128/88
== END 2018-07-30 20:00 | disposition home or self-care (01) ==
LOC: EDUNIT# → ED 14:19
DX: F84.0 Autistic disorder (principal); F91.8 Other conduct disorders; F90.9 Attention-deficit hyperactivity disorder, unspecified type; G40.909 Epilepsy, unspecified, not intractable, without status epilepticus
CPT/HCPCS: 36415; 80053; 80306; 81003; 83690; 85025; 96374; 99284; 99285; A9270; G0425; J2060; Q3014; 81001; 87086

== ENCOUNTER 2018-10-23 17:12 | Emergency (ER) | payer OTHER, MEDICAID ==
--- NOTE | 2018-10-23 17:40 | ED Physician Documentation ---
History of Present Illness - Stated complaint Stated Complaint: POSS CHOKE ON FOOD - Chief complaint Chief Complaint: General - History obtained from History obtained from: Patient, Caregiver - History of Present Illness Timing: Today Pain level max: 0 Pain level now: 0 Improved by: Nothing Worsened by: Nothing - Additonal information Additional information: 23-year-old autistic male choked on his food at school today. Has been asymptomatic since that time. Caregivers were told to bring him here for evaluation. No coughing. No fevers. No difficulty breathing. Acting normal for the patient Review of Systems Constitutional: denies: Fever, Chills Cardiac: denies: Chest pain / pressure Respiratory: denies: Cough GI: denies: Vomiting PD PAST MEDICAL HISTORY - Past Medical History Neuro: Seizure disorder, Other Psych: Other - Past Surgical History Past Surgical History: Yes HEENT: Myringotomy (tubes) - Present Medications Home Medications: Ambulatory Orders Medication Instructions Recorded Confirmed Ferrous Gluconate 1 tab PO DAILY 02/13/18 07/30/18 Folic Acid 1 tab PO DAILY 02/13/18 07/30/18 Lactulose 6 ml PO TID 02/13/18 07/30/18 Levocarnitine [Carnitor] 1 tab PO QPM 02/13/18 07/30/18 [place]-3/Dha/Epa/Fish Oil [Fish Oil 1 tab PO QPM 02/13/18 07/30/18 1,000 mg Softgel] Vitamin B Complex [Balanced B-50] 1 tab PO DAILY 02/13/18 07/30/18 Diacomit Stiripentol 1,000 mg ORAL DAILY 02/24/18 07/30/18 Montelukast [Singulair] 10 mg PO DAILY 02/24/18 07/30/18 Potassium [place] 300 mg ORAL TID 02/24/18 07/30/18 Ubidecarenone [Co Q-10] 100 mg PO BID 02/24/18 07/30/18 Ascorbic Acid [Vitamin C] 500 mg PO BID 07/30/18 07/30/18 Cholecalciferol (Vitamin D3) 1,000 unit PO QPM 07/30/18 07/30/18 [Vitamin D3] Clobazam [Onfi] 30 mg PO QDBREAKFAST 07/30/18 07/30/18 Clobazam [Onfi] 35 mg PO QPM 07/30/18 07/30/18 Divalproex [Delfin Hughes] 125 mg PO TID 07/30/18 07/30/18 Fexofenadine HCl 180 mg PO DAILY 07/30/18 07/30/18 Guanfacine HCl 1 mg PO QPM 07/30/18 07/30/18 Ibuprofen 400 mg PO Q6HR PRN 07/30/18 07/30/18 Iloperidone [Fanapt] 2 mg PO BID 07/30/18 07/30/18 L.acidoph,Saliva/B.bif/S.therm 178 mg PO DAILY 07/30/18 07/30/18 [Acidophilus 175 mg Capsule] LORazepam [Lorazepam] 0.5 mg PO QPM PRN 07/30/18 07/30/18 OLANZapine [Zyprexa] 5 mg PO BID PRN 07/30/18 07/30/18 Xgu236/Ferrous Fumarate/FA [Kro 1 each PO DAILY 07/30/18 07/30/18 Vitamins Tablet] Polyethylene Glycol 3350 [Miralax] 17 gm PO BID PRN 07/30/18 07/30/18 Quetiapine Fumarate 100 mg PO BID 07/30/18 07/30/18 Quetiapine Fumarate [Seroquel] 300 mg PO BID #40 tablet 07/30/18 Quetiapine Fumarate [Seroquel] 300 mg PO DAILY PM 07/30/18 07/30/18 Quetiapine Fumarate [Seroquel] 500 mg PO ONCE PRN 07/30/18 07/30/18 Vitamin E Acetate [Vitamin E] 400 unit PO QPM 07/30/18 07/30/18 diazePAM [Diazepam] 0 mg [place] ONCE PRN 07/30/18 07/30/18 - Allergies Allergies/Adverse Reactions: Allergies Allergy/AdvReac Type Severity Reaction Status Date / Time acetaminophen Allergy Unknown Verified 02/24/18 18:12 prednisone Allergy Hives Verified 02/24/18 18:12 sulfamethoxazole Allergy Unknown Verified 02/24/18 18:12 [From ] trimethoprim [From ] Allergy Unknown Verified 02/24/18 18:12 - Social History Does the pt smoke?: No Smoking Status: Never smoker Does the pt drink ETOH?: No Does the pt have substance abuse?: No - Immunizations Immunizations are current?: Yes - POLST Patient has POLST: No PD ED PE NORMAL - Vitals Vital signs reviewed: Yes - General General: No acute distress, Well developed/nourished - HEENT HEENT: Moist mucous membranes, Pharynx benign - Neck Neck: Supple, no meningeal sign - Cardiac Cardiac: RRR - Respiratory Respiratory: No respiratory distress, Clear bilaterally - Abdomen Abdomen: Soft, Non tender, Non distended - Derm Derm: Warm and dry - Neuro Neuro: Other (Alert, at his normal baseline) Results - Vitals Vitals: Vital Signs - 24 hr 10/23/18 17:20 Temperature 35.5 C L Heart Rate 128 H Respiratory 18 Rate O2 Saturation 97 Oxygen O2 Source Room air PD MEDICAL DECISION MAKING - ED course Complexity details: considered differential, d/w family (Caregivers) ED course: 23-year-old severely autistic male who presents after choking episode a few hours ago. Asymptomatic here. Unlikely that her chest x-ray would show anything at this point and it would not be treated unless he is having symptoms as it may represent a chemical pneumonitis. Caregivers counseled regarding signs and symptoms for which I believe and urgent re-evaluation would be necessary. Caregivers with good understanding of and agreement to plan and is comfortable going home at this time This document was made in part using voice recognition software. While efforts are made to proofread this document, sound alike and grammatical errors may occur. Departure - Departure Disposition: 01 Home, Self Care Clinical Impression: Encounter for medical screening examination Condition: Good Instructions: Dysphagia Aspiration Follow-Up: Anthony Ugalde MD [Primary Care Provider] - Within 3 Days Comments: Return if Michael worsens. Monitor him for symptoms such as increased coughing, fevers or foul-smelling sputum from his lungs. He is asymptomatic at this time and does not require a chest x-ray at this time
== END 2018-10-23 17:54 | disposition home or self-care (01) ==
LOC: ED 17:12
DX: R09.89 Other specified symptoms and signs involving the circulatory and respiratory systems (principal); F84.0 Autistic disorder
CPT/HCPCS: 99282

== ENCOUNTER 2018-11-05 07:07 | Outpatient (CLI) | payer OTHER, MEDICAID ==
[2018-11-05 14:25] LABS: BASOPHILS % (AUTO) 0.5 %; EOSINOPHILS % (AUTO) 0.9 %; HGB - HEMOGLOBIN 12.7 g/dL (14.0-18.0); LYMPHOCYTES # (AUTO) 2.1 10^3/uL (1.5-3.5); LYMPHOCYTES % (AUTO) 39.9 %; MEAN CORPUSCULAR HEMOGLOBIN 32.1 pg (27.0-31.0); MEAN CORPUSCULAR VOLUME 97.2 fL (80.0-94.0); MONOCYTES # (AUTO) 0.5 10^3/uL (0.0-1.0); MONOCYTES % (AUTO) 9.6 %; NEUTROPHILS # (AUTO) 2.6 10^3/uL (1.5-6.6); NEUTROPHILS % (AUTO) 49.1 %; PLT - PLATELET COUNT 283 10^3/uL (130-450); RED BLOOD COUNT 3.97 10^6/uL (4.70-6.10); RED CELL DISTRIBUTION WIDTH 14.1 % (12.0-15.0); WHITE BLOOD COUNT 5.3 x10^3/uL (4.8-10.8)
== END 2018-11-05 07:08 | disposition home or self-care (01) ==
LOC: LAB.WCP 07:07
PROVIDERS: ATTEND Family Medicine
DX: Z51.81 Encounter for therapeutic drug level monitoring (principal); Z79.899 Other long term (current) drug therapy
CPT/HCPCS: 36415; 80053; 80061; 83721; 84443; 85025

== ENCOUNTER 2018-11-06 07:15 | Outpatient (CLI) | payer OTHER, MEDICAID ==
[2018-11-06 13:10] LABS: ALBUMIN 4.3 g/dL (3.2-5.5); ALBUMIN/GLOBULIN RATIO 1.3 (1.0-2.2); ALKALINE PHOSPHATASE 70 IU/L (42-121); ALT ALANINE AMINOTRANSFERASE 19 IU/L (10-60); AST ASPARTATE AMINOTRANSFERASE 23 IU/L (10-42); BILIRUBIN,TOTAL 0.6 mg/dL (0.2-1.0); BUN - BLOOD UREA NITROGEN 7 mg/dL (6-20); CALCIUM 9.6 mg/dL (8.5-10.3); CARBON DIOXIDE - CO2 28 mmol/L (21-32); CHLORIDE 99 mmol/L (101-111); CHOL/HDL RATIO 4.1 (<5.0); CHOLESTEROL 182 mg/dL; CREATININE 0.5 mg/dL (0.6-1.2); GFR - MDRD 210 (>89); GLUCOSE 90 mg/dL (70-100); HDL CHOLESTEROL 44 mg/dL; LDL CHOLESTEROL,CALCULATED 89 mg/dL; SODIUM 136 mmol/L (135-145); TOTAL PROTEIN 7.7 g/dL (6.7-8.2); VLDL CHOLESTEROL 49 mg/dL
== END 2018-11-06 07:16 | disposition home or self-care (01) ==
LOC: LAB.WCP 07:15
PROVIDERS: ATTEND Family Medicine
DX: Z79.899 Other long term (current) drug therapy (principal)
CPT/HCPCS: 36415; 80053; 80061; 83721

== ENCOUNTER 2018-11-10 08:00 | Outpatient (CLI) | payer OTHER, MEDICAID ==
[2018-11-10 13:07] LABS: ABSOLUTE RETICS # AUTO 0.083 10^6/uL (0.020-0.110); MEAN RETIC VALUE 113.7; RED BLOOD COUNT 3.86 10^6/uL (4.70-6.10)
[2018-11-10 13:27] LABS: % IRON SATURATION 8 % (20-50); IRON 39 ug/dL (45-182); TOTAL IRON BINDING CAPACITY 514 ug/dL (250-450); TRANSFERRIN 367 mg/dL (180-329)
[2018-11-10 14:14] LABS: FOLATE > 49.60 ng/mL (5.90 - >24.8)
== END 2018-11-10 23:59 | disposition home or self-care (01) ==
LOC: LAB.WCP 08:00
PROVIDERS: ATTEND Family Medicine
DX: D64.9 Anemia, unspecified (principal)
CPT/HCPCS: 36415; 82607; 82728; 82746; 83540; 84466; 85044

== ENCOUNTER 2018-11-10 13:21 | Emergency (ER) | payer OTHER, MEDICAID ==
[2018-11-10 13:30] VITALS: BP 145/103
--- NOTE | 2018-11-10 13:56 | ED Physician Documentation ---
History of Present Illness - Stated complaint Stated Complaint: FEVER - Chief complaint Chief Complaint: General - History obtained from History obtained from: Patient, Caregiver - History of Present Illness Timing: Today Pain level max: 0 Pain level now: 0 - Additonal information Additional information: 23-year-old male, severely autistic here with a caregiver. Saw his PCP this morning and was diagnosed with a possible upper respiratory infection, likely viral. No fevers. No hypoxia. He went to school where they sent him to the nurse's office and then sent him here for clearance to go back to school. He has no complaints currently. Is not been febrile. No coughing. Acting at his normal baseline Review of Systems Constitutional: denies: Fever Nose: reports: Rhinorrhea / runny nose Respiratory: denies: Cough GI: denies: Vomiting Skin: denies: Rash PD PAST MEDICAL HISTORY - Past Medical History Past Medical History: Yes Neuro: Seizure disorder, Other Psych: Other - Past Surgical History Past Surgical History: Yes HEENT: Myringotomy (tubes) - Present Medications Home Medications: Ambulatory Orders Medication Instructions Recorded Confirmed Ferrous Gluconate 1 tab PO DAILY 02/13/18 07/30/18 Folic Acid 1 tab PO DAILY 02/13/18 07/30/18 Lactulose 6 ml PO TID 02/13/18 07/30/18 Levocarnitine [Carnitor] 1 tab PO QPM 02/13/18 07/30/18 [place]-3/Dha/Epa/Fish Oil [Fish Oil 1 tab PO QPM 02/13/18 07/30/18 1,000 mg Softgel] Vitamin B Complex [Balanced B-50] 1 tab PO DAILY 02/13/18 07/30/18 Diacomit Stiripentol 1,000 mg ORAL DAILY 02/24/18 07/30/18 Montelukast [Singulair] 10 mg PO DAILY 02/24/18 07/30/18 Potassium [place] 300 mg ORAL TID 02/24/18 07/30/18 Ubidecarenone [Co Q-10] 100 mg PO BID 02/24/18 07/30/18 Ascorbic Acid [Vitamin C] 500 mg PO BID 07/30/18 07/30/18 Cholecalciferol (Vitamin D3) 1,000 unit PO QPM 07/30/18 07/30/18 [Vitamin D3] Clobazam [Onfi] 30 mg PO QDBREAKFAST 07/30/18 07/30/18 Clobazam [Onfi] 35 mg PO QPM 07/30/18 07/30/18 Divalproex [Delfin Hughes] 125 mg PO TID 07/30/18 07/30/18 Fexofenadine HCl 180 mg PO DAILY 07/30/18 07/30/18 Guanfacine HCl 1 mg PO QPM 07/30/18 07/30/18 Ibuprofen 400 mg PO Q6HR PRN 07/30/18 07/30/18 Iloperidone [Fanapt] 2 mg PO BID 07/30/18 07/30/18 L.acidoph,Saliva/B.bif/S.therm 178 mg PO DAILY 07/30/18 07/30/18 [Acidophilus 175 mg Capsule] LORazepam [Lorazepam] 0.5 mg PO QPM PRN 07/30/18 07/30/18 OLANZapine [Zyprexa] 5 mg PO BID PRN 07/30/18 07/30/18 [id number]/Ferrous Fumarate/FA [Kro 1 each PO DAILY 07/30/18 07/30/18 Vitamins Tablet] Polyethylene Glycol 3350 [Miralax] 17 gm PO BID PRN 07/30/18 07/30/18 Quetiapine Fumarate 100 mg PO BID 07/30/18 07/30/18 Quetiapine Fumarate [Seroquel] 300 mg PO BID #40 tablet 07/30/18 Quetiapine Fumarate [Seroquel] 300 mg PO DAILY PM 07/30/18 07/30/18 Quetiapine Fumarate [Seroquel] 500 mg PO ONCE PRN 07/30/18 07/30/18 Vitamin E Acetate [Vitamin E] 400 unit PO QPM 07/30/18 07/30/18 diazePAM [Diazepam] 0 mg [place] ONCE PRN 07/30/18 07/30/18 - Allergies Allergies/Adverse Reactions: Allergies Allergy/AdvReac Type Severity Reaction Status Date / Time acetaminophen Allergy Unknown Verified 02/24/18 18:12 prednisone Allergy Hives Verified 02/24/18 18:12 sulfamethoxazole Allergy Unknown Verified 02/24/18 18:12 [From ] trimethoprim [From ] Allergy Unknown Verified 02/24/18 18:12 - Social History Does the pt smoke?: No Smoking Status: Never smoker Does the pt drink ETOH?: No Does the pt have substance abuse?: No - Immunizations Immunizations are current?: Yes - POLST Patient has POLST: No PD ED PE NORMAL - Vitals Vital signs reviewed: Yes - General General: No acute distress, Well developed/nourished, Other (alert, at mental baseline) - HEENT HEENT: PERRL, Pharynx benign - Neck Neck: Supple, no meningeal sign - Cardiac Cardiac: RRR - Respiratory Respiratory: No respiratory distress, Clear bilaterally - Derm Derm: Warm and dry - Extremities Extremities: Other (MAEE) - Neuro Neuro: Other (alert) Results - Vitals Vitals: Vital Signs - 24 hr 11/10/18 13:25 Temperature 36.8 C Heart Rate 133 H Respiratory 18 Rate Blood Pressure 145/103 H O2 Saturation 97 Oxygen O2 Source Room air PD MEDICAL DECISION MAKING - ED course Complexity details: considered differential, d/w family ED course: No emergency medical condition identified at this time. No fever. No hypoxia. No respiratory distress. He is at his baseline. No reason to keep him out of school. Caregivers were counseled regarding return precautions. This document was made in part using voice recognition software. While efforts are made to proofread this document, sound alike and grammatical errors may occur. Departure - Departure Disposition: 01 Home, Self Care Clinical Impression: Encounter for medical screening examination Condition: Good Instructions: ED Screening Exam Medical Nonurgent Follow-Up: Anthony Ugalde MD [Primary Care Provider] - As Needed Comments: return if he worsens. Forms: Activity restrictions Discharge Date/Time: 11/10/18 13:50
== END 2018-11-10 13:50 | disposition home or self-care (01) ==
LOC: ED 13:21
DX: F84.0 Autistic disorder (principal); Z02.0 Encounter for examination for admission to educational institution; D64.9 Anemia, unspecified
CPT/HCPCS: 36415; 82607; 82728; 82746; 83540; 84466; 85044; 99282

== ENCOUNTER 2019-02-16 08:00 | Outpatient (CLI) | payer OTHER, MEDICAID ==
[2019-02-16 12:34] LABS: BASOPHILS % (AUTO) 0.2 %; EOSINOPHILS % (AUTO) 0.6 %; HGB - HEMOGLOBIN 12.8 g/dL (14.0-18.0); LYMPHOCYTES # (AUTO) 1.9 10^3/uL (1.5-3.5); LYMPHOCYTES % (AUTO) 36.6 %; MEAN CORPUSCULAR HEMOGLOBIN 31.7 pg (27.0-31.0); MEAN CORPUSCULAR HGB CONC 31.2 g/dL (32.0-36.0); MEAN CORPUSCULAR VOLUME 101.5 fL (80.0-94.0); MEAN PLATELET VOLUME 11.7 fL (7.4-11.4); MONOCYTES # (AUTO) 0.5 10^3/uL (0.0-1.0); MONOCYTES % (AUTO) 8.7 %; NEUTROPHILS # (AUTO) 2.8 10^3/uL (1.5-6.6); NEUTROPHILS % (AUTO) 53.3 %; PLT - PLATELET COUNT 246 10^3/uL (130-450); RED BLOOD COUNT 4.04 10^6/uL (4.70-6.10); RED CELL DISTRIBUTION WIDTH 13.2 % (12.0-15.0); WHITE BLOOD COUNT 5.2 x10^3/uL (4.8-10.8)
== END 2019-02-16 23:59 | disposition home or self-care (01) ==
LOC: LAB.WCP 08:00
PROVIDERS: ATTEND Family Medicine
DX: D64.9 Anemia, unspecified (principal)
CPT/HCPCS: 36415; 85025

== ENCOUNTER 2019-07-20 11:32 | Outpatient (CLI) | payer OTHER, MEDICAID ==
[2019-07-20 17:08] LABS: BASOPHILS % (AUTO) 0.3 %; EOSINOPHILS % (AUTO) 0.5 %; LYMPHOCYTES # (AUTO) 1.8 10^3/uL (1.5-3.5); LYMPHOCYTES % (AUTO) 44.9 %; MEAN CORPUSCULAR HEMOGLOBIN 32.5 pg (27.0-31.0); MEAN CORPUSCULAR HGB CONC 31.9 g/dL (32.0-36.0); MEAN CORPUSCULAR VOLUME 101.9 fL (80.0-94.0); MEAN PLATELET VOLUME 11.8 fL (7.4-11.4); MONOCYTES # (AUTO) 0.5 10^3/uL (0.0-1.0); MONOCYTES % (AUTO) 11.7 %; NEUTROPHILS # (AUTO) 1.7 10^3/uL (1.5-6.6); NEUTROPHILS % (AUTO) 42.3 %; PLT - PLATELET COUNT 220 10^3/uL (130-450); RED BLOOD COUNT 3.69 10^6/uL (4.70-6.10); RED CELL DISTRIBUTION WIDTH 12.5 % (12.0-15.0); WHITE BLOOD COUNT 3.9 x10^3/uL (4.8-10.8)
== END 2019-07-20 23:59 | disposition home or self-care (01) ==
LOC: LAB.N 11:32
PROVIDERS: ATTEND Family Medicine
DX: D64.9 Anemia, unspecified (principal)
CPT/HCPCS: 36415; 85025

== ENCOUNTER 2019-09-27 07:56 | Outpatient (CLI) | payer OTHER, MEDICAID ==
[2019-09-27 12:05] LABS: BASOPHILS % (AUTO) 0.2 %; EOSINOPHILS % (AUTO) 0.3 %; HGB - HEMOGLOBIN 12.3 g/dL (14.0-18.0); LYMPHOCYTES # (AUTO) 1.9 10^3/uL (1.5-3.5); LYMPHOCYTES % (AUTO) 31.1 %; MEAN CORPUSCULAR HEMOGLOBIN 32.5 pg (27.0-31.0); MEAN CORPUSCULAR HGB CONC 32.5 g/dL (32.0-36.0); MEAN PLATELET VOLUME 11.1 fL (7.4-11.4); MONOCYTES # (AUTO) 0.6 10^3/uL (0.0-1.0); MONOCYTES % (AUTO) 9.7 %; NEUTROPHILS # (AUTO) 3.5 10^3/uL (1.5-6.6); NEUTROPHILS % (AUTO) 58.4 %; PLT - PLATELET COUNT 262 10^3/uL (130-450); RED BLOOD COUNT 3.78 10^6/uL (4.70-6.10); RED CELL DISTRIBUTION WIDTH 12.5 % (12.0-15.0)
[2019-09-27 12:47] LABS: HB2 TOTAL 12.6 g/dL; HEMOGLOBIN A1C 0.44 g/dL; HEMOGLOBIN A1C % 5.3 % (4.6-6.2)
[2019-09-27 13:11] LABS: ALBUMIN 4.2 g/dL (3.2-5.5); ALBUMIN/GLOBULIN RATIO 1.2 (1.0-2.2); ALKALINE PHOSPHATASE 59 IU/L (42-121); ALT ALANINE AMINOTRANSFERASE 12 IU/L (10-60); AST ASPARTATE AMINOTRANSFERASE 21 IU/L (10-42); BILIRUBIN,TOTAL 0.4 mg/dL (0.2-1.0); BUN - BLOOD UREA NITROGEN 7 mg/dL (6-20); CALCIUM 9.7 mg/dL (8.5-10.3); CARBON DIOXIDE - CO2 24 mmol/L (21-32); CHLORIDE 104 mmol/L (101-111); CHOLESTEROL 142 mg/dL; CREATININE 0.5 mg/dL (0.6-1.2); GFR - MDRD 208 (>89); GLUCOSE 89 mg/dL (70-100); HDL CHOLESTEROL 47 mg/dL; LDL CHOLESTEROL,CALCULATED 71 mg/dL; LDL/HDL RATIO 1.5 (<3.6); SODIUM 135 mmol/L (135-145); TOTAL PROTEIN 7.7 g/dL (6.7-8.2); VLDL CHOLESTEROL 24 mg/dL
== END 2019-09-27 23:59 | disposition home or self-care (01) ==
LOC: LAB.N 07:56
PROVIDERS: ATTEND Family Medicine
DX: E78.1 Pure hyperglyceridemia (principal); D64.9 Anemia, unspecified
CPT/HCPCS: 36415; 80053; 80061; 83036; 83721; 84443; 85025

== ENCOUNTER 2019-10-05 13:48 | Outpatient (CLI) | payer BC, MEDICAID ==
[2019-10-05 19:45] LABS: INR 1.1 (0.8-1.2); PT - PROTHROMBIN TIME 12.4 secs (9.9-12.6)
== END 2019-10-05 23:59 | disposition home or self-care (01) ==
LOC: LAB.N 13:48
PROVIDERS: ATTEND Family Medicine
DX: Z01.812 Encounter for preprocedural laboratory examination (principal)
CPT/HCPCS: 36415; 85610; 85730; 87640

== ENCOUNTER 2019-10-12 15:22 | Emergency (ER) | payer BC, MEDICAID ==
[2019-10-12] MEDS ORDERED: KETAMINE 500 MG/10 ML VIAL IM STA (16:14)
[2019-10-12 17:08] VITALS: BP 142/84
--- NOTE | 2019-10-12 17:11 | ED Physician Documentation ---
History of Present Illness - Stated complaint Stated Complaint: POST OP TEAR - Chief complaint Chief Complaint: General - History obtained from History obtained from: Patient - Additonal information Additional information: This is a 24-year-old autistic patient who lives at a half-way is here with the caregiver and program director/morning show host to check the incision on his left upper chest wall. Yesterday he had a vagal nerve stimulator replaced and today he is mom came to visit. After visits from his mom he is always very animated and agitated and they are concerned because they can see bleeding on the bandage and he has been trying to remove the bandage repeatedly. They are concerned he might have ripped out the stitches. Review of Systems Unable to obtain: Other (Patient was nonverbal.) Constitutional: denies: Fever GI: denies: Vomiting PD PAST MEDICAL HISTORY - Past Medical History Neuro: Seizure disorder, Other Psych: Other Other Past Medical History: autism - Past Surgical History Past Surgical History: Yes HEENT: Myringotomy (tubes) - Present Medications Home Medications: Ambulatory Orders Medication Instructions Recorded Confirmed Ferrous Gluconate 1 tab PO DAILY 02/13/18 07/30/18 Folic Acid 1 tab PO DAILY 02/13/18 07/30/18 Lactulose 6 ml PO TID 02/13/18 07/30/18 Levocarnitine [Carnitor] 1 tab PO QPM 02/13/18 07/30/18 [place]-3/Dha/Epa/Fish Oil [Fish Oil 1 tab PO QPM 02/13/18 07/30/18 1,000 mg Softgel] Vitamin B Complex [Balanced B-50] 1 tab PO DAILY 02/13/18 07/30/18 Diacomit Stiripentol 1,000 mg ORAL DAILY 02/24/18 07/30/18 Montelukast [Singulair] 10 mg PO DAILY 02/24/18 07/30/18 Potassium [place] 300 mg ORAL TID 02/24/18 07/30/18 Ubidecarenone [Co Q-10] 100 mg PO BID 02/24/18 07/30/18 Ascorbic Acid [Vitamin C] 500 mg PO BID 07/30/18 07/30/18 Cholecalciferol (Vitamin D3) 1,000 unit PO QPM 07/30/18 07/30/18 [Vitamin D3] Clobazam [Onfi] 30 mg PO QDBREAKFAST 07/30/18 07/30/18 Clobazam [Onfi] 35 mg PO QPM 07/30/18 07/30/18 Divalproex [Delfin Hughes] 125 mg PO TID 07/30/18 07/30/18 Fexofenadine HCl 180 mg PO DAILY 07/30/18 07/30/18 Guanfacine HCl 1 mg PO QPM 07/30/18 07/30/18 Ibuprofen 400 mg PO Q6HR PRN 07/30/18 07/30/18 Iloperidone [Fanapt] 2 mg PO BID 07/30/18 07/30/18 L.acidoph,Saliva/B.bif/S.therm 178 mg PO DAILY 07/30/18 07/30/18 [Acidophilus 175 mg Capsule] LORazepam [Lorazepam] 0.5 mg PO QPM PRN 07/30/18 07/30/18 OLANZapine [Zyprexa] 5 mg PO BID PRN 07/30/18 07/30/18 Pnv No.133/Ferrous Fum/Folic [Kro 1 each PO DAILY 07/30/18 07/30/18 Vitamins Tablet] Quetiapine Fumarate 100 mg PO BID 07/30/18 07/30/18 Quetiapine Fumarate [Seroquel] 300 mg PO BID #40 tablet 07/30/18 Quetiapine Fumarate [Seroquel] 300 mg PO DAILY PM 07/30/18 07/30/18 Quetiapine Fumarate [Seroquel] 500 mg PO ONCE PRN 07/30/18 07/30/18 Vitamin E Acetate [Vitamin E] 400 unit PO QPM 07/30/18 07/30/18 diazePAM [Diazepam] 0 mg [place] ONCE PRN 07/30/18 07/30/18 polyethylene glycoL 3350 [Miralax] 17 gm PO BID PRN 07/30/18 07/30/18 - Allergies Allergies/Adverse Reactions: Allergies Allergy/AdvReac Type Severity Reaction Status Date / Time acetaminophen Allergy Unknown Verified 10/12/19 15:29 prednisone Allergy Hives Verified 10/12/19 15:29 sulfamethoxazole Allergy Unknown Verified 10/12/19 15:29 [From ] trimethoprim [From ] Allergy Unknown Verified 10/12/19 15:29 - Social History Does the pt smoke?: No Smoking Status: Never smoker Does the pt drink ETOH?: No Does the pt have substance abuse?: No - Immunizations Immunizations are current?: Yes - POLST Patient has POLST: No PD ED PE NORMAL - Vitals Vital signs reviewed: Yes - General General: Other (Patient was extremely agitated lashing out walking around the room stumbling. He was constantly redirected by the caregiver and program director/morning show host. We were not even able to get vital signs in the state that he was in.) - Derm Derm: Other (The bandage over the incision site and over the left pectoralis was stained with some blood.) Results - Vitals Vitals: Vital Signs - 24 hr 10/12/19 10/12/19 16:48 17:07 Temperature 37.6 C H Heart Rate 140 H 130 H Respiratory 24 24 Rate Blood Pressure 163/101 H 142/84 H O2 Saturation 92 92 Oxygen O2 Source Room air PD MEDICAL DECISION MAKING - ED course ED course: We medicated the patient with ketamine 3 mg/kg so that we could evaluate the incision. Vital signs were also obtained while he was sedated. Few of the Steri-Strips were replaced but the incision site is still intact with subcuticular running stitch. It was redressed by nursing staff and the patient will be discharged after he has adequately recovered from the sedation. Departure - Departure Disposition: 01 Home, Self Care Clinical Impression: Encounter for postoperative wound check Condition: Good Instructions: ED Wound Care Follow-Up: LICO MONTES MD [Primary Care Provider] - Comments: Keep the wound covered until follow-up as directed by the surgeon.
== END 2019-10-12 18:34 | disposition home or self-care (01) ==
LOC: ED 15:22
DX: Z48.01 Encounter for change or removal of surgical wound dressing (principal)
CPT/HCPCS: 96372; 99283

== ENCOUNTER 2020-04-28 13:18 | Emergency (ER) | payer BC, MEDICAID ==
--- NOTE | 2020-04-28 14:29 | ED Physician Documentation ---
History of Present Illness - Stated complaint Stated Complaint: SEIZURES - Chief complaint Chief Complaint: Neuro - History obtained from History obtained from: Patient, Family - History of Present Illness Timing: Chronic Pain level max: 0 Pain level now: 0 - Additonal information Additional information: 24-year-old male presents to the emergency department accompanied by his guardians. He reportedly has had increased seizure activity over the past 6 months. The caregivers attribute this to his vagal nerve stimulator being changed. He saw his neurologist recently who adjusted his antiepileptic medication. He wears a seizure monitor when he sleeps, family states that he has had 3 seizures today. None were witnessed. They state it lasts approximately 7 to 10 seconds. No recent illnesses. No fevers. No chills. No changes to his medications. Nothing makes it better or worse. No recent trauma. No injuries. Review of Systems Unable to obtain: Uncooperative Constitutional: denies: Fever Respiratory: denies: Cough GI: denies: Vomiting, Diarrhea Skin: denies: Rash PD PAST MEDICAL HISTORY - Past Medical History Past Medical History: Yes Neuro: Seizure disorder, Other Psych: Other (Severe MR) - Past Surgical History Past Surgical History: Yes HEENT: Myringotomy (tubes) - Present Medications Home Medications: Ambulatory Orders Medication Instructions Recorded Confirmed Ferrous Gluconate 1 tab PO DAILY 02/13/18 07/30/18 Folic Acid 1 tab PO DAILY 02/13/18 07/30/18 Lactulose 6 ml PO TID 02/13/18 07/30/18 Levocarnitine [Carnitor] 1 tab PO QPM 02/13/18 07/30/18 [place]-3/Dha/Epa/Fish Oil [Fish Oil 1 tab PO QPM 02/13/18 07/30/18 1,000 mg Softgel] Vitamin B Complex [Balanced B-50] 1 tab PO DAILY 02/13/18 07/30/18 Diacomit Stiripentol 1,000 mg ORAL DAILY 02/24/18 07/30/18 Montelukast [Singulair] 10 mg PO DAILY 02/24/18 07/30/18 Potassium [place] 300 mg ORAL TID 02/24/18 07/30/18 Ubidecarenone [Co Q-10] 100 mg PO BID 02/24/18 07/30/18 Ascorbic Acid [Vitamin C] 500 mg PO BID 07/30/18 07/30/18 Cholecalciferol (Vitamin D3) 1,000 unit PO QPM 07/30/18 07/30/18 [Vitamin D3] Clobazam [Onfi] 30 mg PO QDBREAKFAST 07/30/18 07/30/18 Clobazam [Onfi] 35 mg PO QPM 07/30/18 07/30/[address] [Depakote Dr] 125 mg PO TID 07/30/18 07/30/18 Fexofenadine HCl 180 mg PO DAILY 07/30/18 07/30/18 Guanfacine HCl 1 mg PO QPM 07/30/18 07/30/18 Ibuprofen 400 mg PO Q6HR PRN 07/30/18 07/30/18 Iloperidone [Fanapt] 2 mg PO BID 07/30/18 07/30/18 L.acidoph,Saliva/B.bif/S.therm 178 mg PO DAILY 07/30/18 07/30/18 [Acidophilus 175 mg Capsule] LORazepam [Lorazepam] 0.5 mg PO QPM PRN 07/30/18 07/30/18 OLANZapine [Zyprexa] 5 mg PO BID PRN 07/30/18 07/30/18 Pnv No.133/Ferrous Fum/Folic [Kro 1 each PO DAILY 07/30/18 07/30/18 Vitamins Tablet] Quetiapine Fumarate 100 mg PO BID 07/30/18 07/30/18 Quetiapine Fumarate [Seroquel] 300 mg PO BID #40 tablet 07/30/18 Quetiapine Fumarate [Seroquel] 300 mg PO DAILY PM 07/30/18 07/30/18 Quetiapine Fumarate [Seroquel] 500 mg PO ONCE PRN 07/30/18 07/30/18 Vitamin E Acetate [Vitamin E] 400 unit PO QPM 07/30/18 07/30/18 diazePAM [Diazepam] 0 mg [place] ONCE PRN 07/30/18 07/30/18 polyethylene glycoL 3350 [Miralax] 17 gm PO BID PRN 07/30/18 07/30/18 - Allergies Allergies/Adverse Reactions: Allergies Allergy/AdvReac Type Severity Reaction Status Date / Time acetaminophen Allergy Unknown Verified 04/28/20 14:34 prednisone Allergy Hives Verified 04/28/20 14:34 sulfamethoxazole Allergy Unknown Verified 04/28/20 14:34 [From ] trimethoprim [From ] Allergy Unknown Verified 04/28/20 14:34 - Social History Does the pt smoke?: No Smoking Status: Never smoker Does the pt drink ETOH?: No Does the pt have substance abuse?: No - Immunizations Immunizations are current?: Yes - POLST Patient has POLST: No PD ED PE NORMAL - Vitals Vital signs reviewed: Yes (Vital signs were unable to be obtained.) - General General: No acute distress, Well developed/nourished, Other (Alert, interactive, at his baseline) - HEENT HEENT: PERRL, Ears normal, Moist mucous membranes, Pharynx benign, Other (normal ears, nose, throat) - Neck Neck: Supple, no meningeal sign - Cardiac Cardiac: RRR - Respiratory Respiratory: No respiratory distress, Clear bilaterally - Abdomen Abdomen: Soft, Non tender, Non distended - Derm Derm: Warm and dry - Extremities Extremities: No edema - Neuro Neuro: Other (Alert, interactive) Results - Vitals Vitals: Oxygen O2 Source Room air - Labs Labs: Laboratory Tests 04/28/20 14:30 Sodium 134 L Potassium 4.4 Chloride 95 L Carbon Dioxide 25 Anion Gap 14.0 H BUN 7 Creatinine 0.5 L Estimated GFR (MDRD) 208 Glucose 96 Calcium 9.3 PD MEDICAL DECISION MAKING - ED course Complexity details: reviewed results, re-evaluated patient, considered differential, d/w family, d/w solar energy consultant and designer (Discussed the case with his neurologist, Dr. Harrison at [facility]. Recommends a BMP. If no significant electrolyte abnormalities, continue to monitor the patient at home, keep a journal of these episodes and follow-up in clinic.) ED course: No significant abnormalities on BMP. We will have him follow-up with neurology for further care. No signs of infection. Unclear if these are actual seizures versus artifact from the device he wears. Family counseled Regarding signs and symptoms for which I believe and urgent evaluation would be necessary. They are comfortable going home at this time. This document was made in part using voice recognition software. While efforts are made to proofread this document, sound alike and grammatical errors may occur. Departure - Departure Disposition: 01 Home, Self Care Clinical Impression: Seizure Condition: Good Instructions: ED Seizure Recurrent Follow-Up: LICO MONTES MD [Primary Care Provider] - Deyvi Harrison MD [Physician No Access] - Comments: Follow-up with your neurologist for further care. Your blood work does not show any acute abnormalities today. Continue his current medications. Dr. Harrison wants you to keep a journal of the seizure-like activity at home and follow-up in the office. Discharge Date/Time: 04/28/20 15:06
[2020-04-28 14:48] LABS: CALCIUM 9.3 mg/dL (8.5-10.3); CREATININE 0.5 mg/dL (0.6-1.2)
== END 2020-04-28 15:06 | disposition home or self-care (01) ==
LOC: ED 13:18
DX: R56.9 Unspecified convulsions (principal)
CPT/HCPCS: 36415; 80048; 99283; 99284

== ENCOUNTER 2020-10-13 08:00 | Outpatient (CLI) | payer MEDICAID ==
[2020-10-13 10:40] LABS: EOSINOPHILS % (AUTO) 0.5 %; HGB - HEMOGLOBIN 12.4 g/dL (14.0-18.0); LYMPHOCYTES # (AUTO) 1.9 10^3/uL (1.5-3.5); LYMPHOCYTES % (AUTO) 50.1 %; MEAN CORPUSCULAR HGB CONC 32.2 g/dL (32.0-36.0); MEAN CORPUSCULAR VOLUME 102.4 fL (80.0-94.0); MEAN PLATELET VOLUME 9.4 fL (7.4-11.4); MONOCYTES # (AUTO) 0.3 10^3/uL (0.0-1.0); MONOCYTES % (AUTO) 8.8 %; NEUTROPHILS # (AUTO) 1.6 10^3/uL (1.5-6.6); NEUTROPHILS % (AUTO) 40.3 %; PLT - PLATELET COUNT 215 10^3/uL (130-450); RED BLOOD COUNT 3.76 10^6/uL (4.70-6.10); WHITE BLOOD COUNT 3.9 x10^3/uL (4.8-10.8)
[2020-10-13 11:09] LABS: % IRON SATURATION 21 % (20-50); ALBUMIN 4.4 g/dL (3.2-5.5); ALBUMIN/GLOBULIN RATIO 1.3 (1.0-2.2); ALKALINE PHOSPHATASE 49 IU/L (42-121); ALT ALANINE AMINOTRANSFERASE 15 IU/L (10-60); AST ASPARTATE AMINOTRANSFERASE 20 IU/L (10-42); BILIRUBIN,TOTAL 0.4 mg/dL (0.2-1.0); BUN - BLOOD UREA NITROGEN 7 mg/dL (6-20); CALCIUM 9.9 mg/dL (8.5-10.3); CARBON DIOXIDE - CO2 23 mmol/L (21-32); CHLORIDE 100 mmol/L (101-111); CHOL/HDL RATIO 3.6 (<5.0); CHOLESTEROL 184 mg/dL; CREATININE 0.5 mg/dL (0.6-1.2); GLUCOSE 109 mg/dL (70-100); HDL CHOLESTEROL 51 mg/dL; IRON 116 ug/dL (45-182); LDL CHOLESTEROL,CALCULATED 98 mg/dL; LDL/HDL RATIO 1.9 (<3.6); TOTAL IRON BINDING CAPACITY 543 ug/dL (250-450); TOTAL PROTEIN 7.8 g/dL (6.7-8.2); TRANSFERRIN 388 mg/dL (180-329); VLDL CHOLESTEROL 35 mg/dL
[2020-10-13 11:14] LABS: THYROID STIMULATING HORMONE 2.23 uIU/mL (0.34-5.60)
[2020-10-13 11:16] LABS: FREE T4 (FREE THYROXINE) 0.62 ng/dL (0.58-1.64)
[2020-10-13 11:22] LABS: HEMOGLOBIN A1c% 5.3 % (4.27-6.07)
== END 2020-10-13 23:59 | disposition home or self-care (01) ==
LOC: LAB 08:00
PROVIDERS: ATTEND Internal Medicine
DX: F84.0 Autistic disorder (principal); R56.9 Unspecified convulsions; F48.9 Nonpsychotic mental disorder, unspecified
CPT/HCPCS: 36415; 80050; 80061; 80164; 82140; 82607; 82728; 83036; 83540; 83721; 84439; 84466

== ENCOUNTER 2021-01-04 10:59 | Outpatient (CLI) | payer MEDICAID ==
--- NOTE | 2021-01-04 14:31 | XRAY Report ---
PROCEDURE: Toe(s) RT INDICATIONS: CONTUSION OF RIGHT GREAT TOE TECHNIQUE: 2 views of the right great toe acquired. COMPARISON: Right foot radiographs 02/24/2018 FINDINGS: Bones: No acute fractures or dislocations. No suspicious bony lesions. Moderate degenerative murrell es are seen at the first interphalangeal joint, which has mildly progressed when compared to the radi ographs from 02/24/2018. There is mild hallux valgus. Soft tissues: No suspicious soft tissue densities. IMPRESSION: 1. No acute osseous abnormality. 2. Moderate degenerative changes at the first interphalangeal joint, which may be related to remote prior trauma. 3. Mild hallux valgus. If there is clinical concern or persistent symptoms, additional imaging such as repeat radiographs or advanced imaging such as MRI may be helpful for further evaluation. Reviewed by: Cirilo Winn MD on 01/04/2021 2:29 PM PDT Approved by: Cirilo Winn MD on 01/04/2021 2:29 PM PDT Station ID: [id number]
== END 2021-01-04 23:59 | disposition home or self-care (01) ==
LOC: DI.N 10:59
PROVIDERS: ATTEND Emergency Medicine
DX: S90.211A Contusion of right great toe with damage to nail, initial encounter (principal); M19.071 Primary osteoarthritis, right ankle and foot; M20.11 Hallux valgus (acquired), right foot